=== PATIENT | male | born 1955 | race Caucasian/White ===

== ENCOUNTER 2017-02-26 12:12 | Outpatient (CLI) | payer OTHER ==
--- NOTE | 2017-02-26 14:37 | DIAGNOSTIC IMAGING REPORT ---
PROCEDURE: US ART LOWER EXT DOPPLER-BILAT INDICATION: Peripheral artery disease, claudication. TECHNIQUE: Color Doppler duplex imaging of each lower extremity arterial system was performed. COMPARISON: None. FINDINGS: Right leg: VESSELS/ WAVEFORMS: Triphasic inflow. Moderate calcific irregularity of the common and proximal superficial femoral artery. Heavy calcification of calf arteries. There is triphasic flow throughout the right lower extremity until the dorsalis pedis artery which demonstrates biphasic flow. No flow was detected in the peroneal artery. PEAK SYSTOLIC VELOCITIES: External iliac: 177 cm/second. Common femoral artery: 179 cm/second. Profunda femoral artery: 126 cm/second. Proximal superficial femoral artery: 126 cm/second. Mid superficial femoral artery: 87 cm/second. Distal superficial femoral artery: 49 cm/second. Popliteal artery: 72 cm/second. Proximal posterior tibial artery: 63 cm/second. Proximal anterior tibial artery: 55 cm/second. Peroneal artery: Zero cm/second. Distal posterior tibial artery: 49 cm/second. Dorsalis pedis artery: 57 cm/second. Left leg: VESSELS/ WAVEFORMS: There is monophasic arterial inflow. In the proximal superficial femoral artery, there is an area of mainly calcified plaque causing subjectively significant stenosis and turbulent flow. There is a significant velocity elevation in the stenosis and decreased flow distally. The wave forms distally are monophasic demonstrating delayed systolic acceleration. There is a calcified thrombus occluding the popliteal artery. Posterior tibial and anterior tibial arteries are reconstituted. Heavy calcification. There is questionable flow in the peroneal artery. Flow remains monophasic in the calf to the ankle. PEAK SYSTOLIC VELOCITIES: External iliac: 32 cm/second. Common femoral artery: 49 cm/second. Profunda femoral artery: 47 cm/second. Proximal superficial femoral artery: 574 cm/second. Mid superficial femoral artery: 40 cm/second. Distal superficial femoral artery: 30 cm/second. Popliteal artery: Zero cm/second. Proximal posterior tibial artery: 35 cm/second. Proximal anterior tibial artery: 26 cm/second. Peroneal artery: 26 cm/second. Distal posterior tibial artery: 28 cm/second. Dorsalis pedis artery: 39 cm/second. IMPRESSION: 1. Hemodynamically significant stenosis in the proximal left superficial femoral artery. 2. Occluded left popliteal artery with reconstitution of at least two-vessel runoff to the ankle. 3. Occluded or very little flow within the right peroneal artery. 4. Heavily calcified calf arteries bilaterally.
== END 2017-02-26 23:00 ==
LOC: US SRH 12:12
DX: I70.203 Unspecified atherosclerosis of native arteries of extremities, bilateral legs (principal)